=== PATIENT | male | born 1960 | race Caucasian/White ===

== ENCOUNTER 2018-05-15 07:29 | Emergency (ER) | payer MEDICAID ==
[2018-05-15 07:41] VITALS: BP 130/90
--- NOTE | 2018-05-15 08:00 | EDPHY ---
H & P Stated Complaint: ETOH, hypothermia Time Seen by Provider: 05/15/18 07:35 HPI/ROS: CHIEF COMPLAINT: Intoxicated, cold HISTORY OF PRESENT ILLNESS: The patient is a homeless male presents to the ED with alcohol intoxication and being cold. The patient denies any history of fall or trauma. His history is somewhat limited by his alcohol intoxication. Patient denies additional acute complaints aside from being cold. REVIEW OF SYSTEMS: A comprehensive 10 point review of systems is otherwise negative aside from elements mentioned in the history of present illness. Source: Patient - Personal History Current Tetanus/Diphtheria Vaccine: Unsure - Medical/Surgical History Hx Asthma: No Hx Chronic Respiratory Disease: No Hx Diabetes: No Hx Cardiac Disease: No Hx Renal Disease: No Hx Cirrhosis: No Hx Alcoholism: No Hx HIV/AIDS: No Hx Splenectomy or Spleen Trauma: No Other PMH: ETOH homeless - Social History Smoking Status: Unknown if ever smoked - Physical Exam Exam: General Appearance: Disheveled male, sleeping, alcohol on breath Head: Atraumatic Eyes: Pupils equal, round, reactive ENT, Mouth: No hemotympanum, no oral trauma Neck: Nontender, trachea midline Respiratory: No chest wall tender, no subcutaneous air, lungs clear bilaterally Cardiovascular: Regular rate and rhythm Abdomen: Abdomen is soft and nontender, pelvis stable Skin: No lacerations, No abrasion Back: No midline T/L/S pain Extremities: Nontender, full range of motion Neurological: Moves all 4 extremities with 5/5 strength Constitutional: Initial Vital Signs Temperature (C) 33.5 C L 05/15/18 07:38 Heart Rate 73 05/15/18 07:38 Respiratory Rate 12 05/15/18 07:38 Blood Pressure 130/90 H 05/15/18 07:38 O2 Sat (%) 94 05/15/18 07:38 O2 Delivery Mode Room Air Home Medications: Medication Instructions Recorded NK [No Known Home Meds] 05/15/18 Medical Decision Making ED Course/Re-evaluation: The patient arrives to the emergency department with alcohol intoxication and hypothermia. The patient's initial temperature was 33.5 degrees. He is mentating appropriately without evidence of an arrhythmia. He has no respiratory depression. The patient was placed on a Rich Hugger for passive rewarming. The patient is refusing to get undressed. He is also refusing IV access which she was offered for warm IV fluid. The patient's temperature was rechecked at 9 3:00 p.m. He continues to be mildly hypothermic with a temperature of 34 degrees. Plan for ongoing passive rewarming. 2:00 p.m.: Patient's temperature is now 35.8 degrees. He is still quite intoxicated. He will require further sobriety before he can be [facility]. 3:00 p.m.: Patient is now sober. He would like to go to the [facility]. He will be discharged there with a Librium prepack. Differential Diagnosis: Differential diagnosis considered includes alcohol intoxication, hypothermia, dehydration, metabolic derangement - Data Points Laboratory Results: Laboratory Results 05/15/18 09:55 05/15/18 09:55 Sodium 151 mEq/L H mEq/L (135-145) Potassium 4.1 mEq/L mEq/L (3.3-5.0) Chloride 111 mEq/L H mEq/L (97-110) Carbon Dioxide 25 mEq/l mEq/l (22-31) Anion Gap 15 mEq/L H mEq/L (6-14) BUN 8 mg/dL mg/dL (7-23) Creatinine 0.5 mg/dL L mg/dL (0.7-1.3) Estimated GFR > 60 Glucose 101 mg/dL H mg/dL (70-100) Calcium 8.2 mg/dL L mg/dL (8.5-10.4) Specimen Hemolysis 120 Ethyl Alcohol 442 mg/dL H* mg/dL (0-10) Departure - Departure Disposition: Home, Routine, Self-Care Clinical Impression: Alcoholic intoxication Condition: Good Instructions: Alcohol Intoxication (ED) Additional Instructions: Continued to be use of alcohol put to at risk for significant injury or . I do recommend following up with the [facility] if you desire assistance with your chronic alcohol dependence. Referrals: [facility] [Outside] - As per Instructions
[2018-05-15] MEDS ORDERED: NS 1,000 ML IV ONE ×2 (09:18)
[2018-05-15] MEDS ORDERED: CHLORDIAZEPOXIDE 25MG PREPK#6 BTL TAKEHOME ONE ×2 (14:55)
[2018-05-15] MEDS ORDERED: ACETAMINOPHEN 500 MG TAB PO ONE (14:55)
== END 2018-05-15 16:43 | disposition home or self-care (01) ==
LOC: EDBD 07:29
DX: F10.129 Alcohol abuse with intoxication, unspecified (principal)
CPT/HCPCS: G0480

== ENCOUNTER 2018-05-15 22:27 | Emergency (ER) | payer MEDICAID ==
[2018-05-15] MEDS ORDERED: LORazepam 1 MG TAB PO PRN (22:36)
[2018-05-15] MEDS ORDERED: NS 1,000 ML IV ONE (22:41)
--- NOTE | 2018-05-15 22:41 | EDPHY ---
H & P Stated Complaint: ETOH WD from the [facility] Source: Patient, RN/MD, Old records Exam Limitations: Intoxication - Personal History Current Tetanus/Diphtheria Vaccine: Yes Current Tetanus Diphtheria and Acellular Pertussis (TDAP): Yes - Medical/Surgical History Hx Asthma: No Hx Chronic Respiratory Disease: No Hx Diabetes: No Hx Cardiac Disease: No Hx Renal Disease: No Hx Cirrhosis: No Hx Alcoholism: No Hx HIV/AIDS: No Hx Splenectomy or Spleen Trauma: No Other PMH: ETOH homeless - Social History Smoking Status: Current every day smoker Time Seen by Provider: 05/15/18 22:35 HPI/ROS: HPI: This is a 57-year-old male who presents with Chief Complaint: ETOH WD from the [facility] Location: psych Quality: Alcohol intoxication and withdrawal Duration: Unknown Signs and Symptoms: Timing: Severity: Context: Patient presents via EMS from the [facility] as they have given him several pills of Librium any still is experiencing alcohol withdrawal symptoms. Last librium 50mg @ 1900 @ the [facility]. Patient reports that he drinks a pt of alcohol daily. Last drink of alcohol "sometime this morning. " He has had alcohol withdrawal seizures before when he was incarcerated but has never had been hospitalized. He reports that he feels jittery and anxious with hallucinations. Was seen earlier in the emergency room today for hypothermia and alcohol intoxication. Modifying Factors: Librium mild relief Comment: ROS: A comprehensive 10 system review of systems is otherwise negative aside from elements mentioned in the history of present illness. MEDICAL/SURGICAL/SOCIAL HISTORY: Medical history: Alcoholism Surgical history: Denies Social history: Homeless. Family history noncontributory. CONSTITUTIONAL: Untidy, malodorous, polite and cooperative middle-aged white male, awake and alert, no obvious distress HEENT: Atraumatic and normocephalic, PERRL, EOMI. Nares patent; no rhinorrhea; no nasal mucosal edema. Tympanic membranes clear. Oropharynx clear, poor dentition, no exudate and moist pink mucosa. Airway patent. No lymphadenopathy. No meningismus. Cardiovascular: Normal S1/S2, tachycardia, regular rhythm, without murmur rub or gallop. PULMONARY/CHEST: Symmetrical and nontender. Clear to auscultation bilaterally. Good air movement. No accessory muscle usage. ABDOMEN: Soft, nondistended, nontender, no rebound, no guarding, no peritoneal signs, no masses or organomegaly. No CVAT. EXTREMITIES: 2/2 pulses, strength 5/5, no deformities, no clubbing, no cyanosis or edema. NEUROLOGICAL: no focal neuro deficits. GCS 15. Hand tremors noted. SKIN: Warm and dry, no erythema. no rash. Good capillary refill. (Rashmi Lanier) Constitutional: Initial Vital Signs Temperature (C) 36.8 C 05/15/18 22:30 Heart Rate 116 H 05/15/18 22:30 Respiratory Rate 18 05/15/18 22:30 Blood Pressure 156/91 H 05/15/18 22:30 O2 Sat (%) 95 05/15/18 22:30 O2 Delivery Mode Room Air Allergies/Adverse Reactions: No Known Allergies Allergy (Unverified 05/15/18 22:30) Home Medications: Medication Instructions Recorded NK [No Known Home Meds] 05/15/18 Medical Decision Making ED Course/Re-evaluation: 1:00 a.m. I evaluated the patient. He is not tachycardic. He is still tremulous. He is see was 6. We will give him 2 mg IV Ativan and continue to observe. He has continued dehydration. 4:30 a.m. the patient is doing much better. His heart rate and blood pressure normalized. He still has mild tremors which she states is actually baseline. We spoke with the [facility] who states that part of the reason they sent him earlier cause he was throwing up his Librium. We will give him a dose of p.o. Ativan to see if he tolerates this and will plan on discharging back to the [facility]. The patient is tolerating p.o. We will symptom back to the [facility] with Librium prepack. (Juan F Goff) Vital signs reviewed upon arrival in show mild tachycardia. Laboratory studies, IV fluids, IV medications ordered. Will give Ativan based on the alcohol withdrawal order set. 2338: Reassessed patient who reports improvement in symptoms. Watching TV and asking to drink apple juice. 2346: Labs reviewed. Slightly elevated LFTs noted. Lipase 479. Abdomen soft and nontender. Doubt surgical process. Patient asymptomatic. 2350: CIWA upon arrival equals 9. 2330: End of shift. Signed over to Dr. Goff pending improvement in alcohol withdrawal symptoms. If patient is improved, discharged [facility] with [facility]rium prepack. If patient continues to worsen, admit to the ICU with IV Ativan drip secondary to alcohol withdrawal. This patient was seen under the supervision of my secondary supervising physician. I evaluated care for this patient independently. Discussed this patient with Dr. Goff. (Rashmi Lanier) Differential Diagnosis: Differential diagnosis includes but is not limited to alcohol intoxication, alcohol withdrawal seizures, delirium tremens. (Rashmi Lanier) - Data Points Laboratory Results: Laboratory Results 05/15/18 23:15 Medications Given: Discontinued Medications Chlordiazepoxide (Librium 25 Mg Prepack#6) 1 btl TAKEHOME EDNOW ONE Stop: 05/15/18 23:10 Last Admin: 05/16/18 05:15 Dose: 1 btl Sodium Chloride (Ns) 1,000 mls @ 0 mls/hr IV EDNOW ONE; Wide Open PRN Reason: Protocol Stop: 05/15/18 22:42 Last Admin: 05/15/18 23:12 Dose: 1,000 mls Lorazepam (Ativan) 0 mg PO Q4H PRN; Protocol PRN Reason: Alcohol Withdrawal w/IV access Stop: 05/16/18 10:36 Last Admin: 05/16/18 04:31 Dose: 2 mg Lorazepam (Ativan Injection) 0 mg IVP Q1H PRN; Protocol PRN Reason: Alcohol Withdrawal w/IV access Stop: 05/16/18 10:36 Last Admin: 05/16/18 01:09 Dose: 2 mg Departure - Departure Disposition: Home, Routine, Self-Care Clinical Impression: Alcohol abuse Alcohol withdrawal Qualifiers: Complication of substance-induced condition: uncomplicated Qualified Code(s): F10.230 - Alcohol dependence with withdrawal, uncomplicated Condition: Good Instructions: Chlordiazepoxide/Clidinium (By mouth), Abuse of Alcohol (ED), Alcohol Withdrawal (ED) Referrals: [facility],. [Clinic] - As per Instructions [facility] [Outside] - As per Instructions
[2018-05-15] MEDS ORDERED: CHLORDIAZEPOXIDE 25MG PREPK#6 BTL TAKEHOME ONE (23:09)
[2018-05-15] MEDS: LORazepam 2 MG/ML INJ IVP PRN (23:12)
[2018-05-16] MEDS: LORazepam 2 MG/ML INJ IVP PRN (01:09)
[2018-05-16] MEDS ORDERED: CHLORDIAZEPOXIDE 25MG PREPK#6 BTL TAKEHOME ONE (04:36)
[2018-05-16 05:29] VITALS: BP 148/85
[2018-05-19] MEDS ORDERED: LORazepam 2 MG/ML INJ IVP ONE (02:20)
== END 2018-05-16 06:00 | disposition home or self-care (01) ==
LOC: EDUNIT#
DX: F10.239 Alcohol dependence with withdrawal, unspecified (principal); E86.0 Dehydration; Z72.0 Tobacco use; Y90.2 Blood alcohol level of 40-59 mg/100 ml
CPT/HCPCS: 96374; G0480; J2060